=== PATIENT | female | born 1985 | race Caucasian/White ===

== ENCOUNTER 2017-06-10 04:59 | Inpatient (IN) | payer OTHER ==
[~2017-06-10] VITALS: Ht 160 cm; Wt 66.2 kg
[2017-06-10] MEDS ORDERED: RINGERS SOLUTION,LACTATED 1,000 ML IV PRN (06:51)
[2017-06-10] MEDS ORDERED: CITRIC ACID/SODIUM CITRATE 30 ML SOLUTION UDCUP PO PRN (07:00)
[2017-06-10] MEDS ORDERED: LIDOCAINE HCL/PF 1% 30 ML VIAL INJ PRN (07:00)
[2017-06-10] MEDS ORDERED: FentaNYL CITRATE-PF 100 MCG/2 ML VIAL IVP PRN (07:00)
[2017-06-10] MEDS ORDERED: METOCLOPRAMIDE HCL 5 MG/ML 2 ML VIAL IVP PRN (07:00)
[2017-06-10 07:13] VITALS: BP 131/97
[2017-06-10] MEDS ORDERED: RINGERS SOLUTION,LACTATED 1,000 ML IV ONE (07:15)
[2017-06-10 07:22] LABS: BASOPHILS % (AUTO) 0.4 % (0.0-2.0); EOSINOPHILS % (AUTO) 0.6 % (1.0-6.0); HEMATOCRIT 43.4 % (36-46); HEMOGLOBIN 14.7 g/dL (12.0-16.0); LYMPHOCYTES # (AUTO) 1.7 K/uL (1.0-4.8); LYMPHOCYTES % (AUTO) 21.1 % (22.0-44.0); MEAN CORPUSCULAR HEMOGLOBIN 31.6 pg (26.0-34.0); MEAN CORPUSCULAR HGB CONC 33.9 G/dL (31.0-37.0); MEAN CORPUSCULAR VOLUME 93 fL (80-100); MONOCYTES # (AUTO) 0.4 K/uL (0.1-1.0); MONOCYTES % (AUTO) 4.5 % (2.0-9.0); NEUTROPHILS # (AUTO) 5.8 K/uL (1.8-7.7); NEUTROPHILS % (AUTO) 73.4 % (40.0-70.0); PLATELET COUNT (AUTO)-OB 132 K/uL (150-450); RED BLOOD CELL COUNT(AUTO) 4.65 MIL/uL (4.00-5.20)
[2017-06-10] MEDS: RINGERS SOLUTION,LACTATED 1,000 ML IV SCH ×2 (07:36→12:56)
[2017-06-10] MEDS ORDERED: ROPIVACAINE HCL/PF 1% 10 MG/ML 20 ML VIAL ED ONE (08:32)
[2017-06-10] MEDS ORDERED: ROPIVACAINE HCL/PF 0.2% 100 ML ED ONE (08:33)
[2017-06-10] MEDS ORDERED: OXYTOCIN 30 UNITS/LACT RINGERS 500 ML IV ONE (13:45)
[2017-06-10] MEDS ORDERED: CeFAZolin 2 GM/DEXTROSE 50 ML IV ONE (15:45)
[2017-06-10] MEDS ORDERED: LANOLIN 7 GM OINTMENT TP PRN (16:15)
[2017-06-10] MEDS ORDERED: GLYCERIN/WITCH HAZEL LEAF 40 PADS JAR TP PRN (16:15)
[2017-06-10] MEDS ORDERED: BENZOCAINE 20%/MENTHOL 56 GM SPRAY CANISTER TP PRN (16:15)
[2017-06-10] MEDS ORDERED: SENNA/DOCUSATE SODIUM 187-50 MG TABLET PO ONE (16:15)
[2017-06-10] MEDS ORDERED: ACETAMINOPHEN/CODEINE 300-30 MG TABLET PO PRN ×2 (16:15)
[2017-06-10] MEDS: IBUPROFEN 800 MG TABLET PO SCH (18:23)
[2017-06-10] MEDS: MAGNESIUM HYDROXIDE SUSPENSION 30 ML UDCUP PO SCH (22:15)
[2017-06-11] MEDS: IBUPROFEN 800 MG TABLET PO SCH ×3 (01:04→12:27)
[2017-06-11] MEDS: MAGNESIUM HYDROXIDE SUSPENSION 30 ML UDCUP PO SCH (10:43)
[2017-06-11] MEDS ORDERED: SENNA/DOCUSATE SODIUM 187-50 MG TABLET PO ONE (11:30)
[2017-06-11] MEDS ORDERED: IBUP-2071 PO (11:58)
== END 2017-06-11 14:30 | disposition home or self-care (01) | DRG 775 ==
LOC: OBSVTOIN 04:59 → 4S 04:59
PROVIDERS: ADMIT Obstetrics & Gynecology; ATTEND Obstetrics & Gynecology
PROC: 10E0XZZ Delivery of Products of Conception, External Approach (ICD-10-PCS; principal; 2017-06-10)
PROC: 10907ZC Drainage of Amniotic Fluid, Therapeutic from Products of Conception, Via Natural or Artificial Opening (ICD-10-PCS; 2017-06-10)
PROC: 0W8NXZZ Division of Female Perineum, External Approach (ICD-10-PCS; 2017-06-10)
PROC: 4A1HXCZ Monitoring of Products of Conception, Cardiac Rate, External Approach (ICD-10-PCS; 2017-06-10)
PROC: 3E0R3BZ Introduction of Anesthetic Agent into Spinal Canal, Percutaneous Approach (ICD-10-PCS; 2017-06-10)
PROC: 00HU33Z Insertion of Infusion Device into Spinal Canal, Percutaneous Approach (ICD-10-PCS; 2017-06-10)
DX: O63.1 Prolonged second stage (of labor) (principal); Z37.0 Single live birth; Z3A.39 39 weeks gestation of pregnancy; Z79.899 Other long term (current) drug therapy
CPT/HCPCS: 86850; 86900; 86901; J0690; J2590; J2795; J7120

== ENCOUNTER 2019-12-02 13:05 | Observation (INO) | payer OTHER ==
[~2019-12-02] VITALS: Ht 152.4 cm; Wt 67.6 kg
[~2019-12-02 13:05] MED LIST: IBUP-2071 PO
[2019-12-02] MEDS ORDERED: PREN-217 PO (13:11)
[2019-12-02 14:14] VITALS: BP 116/78
[2019-12-02 15:39] LABS: COVID AG,FIA SOURCE NASOPHARYNGEAL
== END 2019-12-02 15:35 | disposition home or self-care (01) ==
LOC: 4S 13:05
PROVIDERS: ADMIT Obstetrics & Gynecology; ATTEND Obstetrics & Gynecology
DX: Z34.83 Encounter for supervision of other normal pregnancy, third trimester (principal); Z20.828 Contact with and (suspected) exposure to other viral communicable diseases; Z3A.38 38 weeks gestation of pregnancy
CPT/HCPCS: 59025; 87426; 99219

== ENCOUNTER 2019-12-02 13:10 | Inpatient (IN) | payer OTHER ==
[~2019-12-02] VITALS: Ht 160 cm; Wt 68.0 kg
[2019-12-02] MEDS ORDERED: PREN-217 PO (13:11)
[2019-12-05] MEDS ORDERED: RINGERS SOLUTION,LACTATED 1,000 ML IV ONE (09:24)
[2019-12-05] MEDS ORDERED: RINGERS SOLUTION,LACTATED 1,000 ML IV PRN (09:26)
[2019-12-05] MEDS ORDERED: OXYTOCIN 30 UNITS/LACT RINGERS 500 ML IV ONE (09:26)
[2019-12-05] MEDS ORDERED: OXYTOCIN 30 UNITS/LACT RINGERS 500 ML IV PRN (09:26)
[2019-12-05] MEDS ORDERED: METOCLOPRAMIDE HCL 5 MG/ML 2 ML VIAL IVP PRN (09:30)
[2019-12-05] MEDS ORDERED: CITRIC ACID/SODIUM CITRATE 30 ML SOLUTION UDCUP PO PRN (09:30)
[2019-12-05] MEDS ORDERED: FentaNYL CITRATE-PF 100 MCG/2 ML VIAL IVP PRN (09:30)
[2019-12-05] MEDS ORDERED: LIDOCAINE/PF 1% 30 ML VIAL INJ PRN (09:30)
[2019-12-05] MEDS ORDERED: METHYLERGONOVINE MALEATE 0.2 MG/ML VIAL IM PRN (09:30)
[2019-12-05 09:39] VITALS: BP 136/81
[2019-12-05] MEDS: RINGERS SOLUTION,LACTATED 1,000 ML IV SCH ×2 (09:45→11:54)
[2019-12-05 09:56] LABS: BASOPHILS % (AUTO) 0.4 % (0.0-2.0); EOSINOPHILS % (AUTO) 1.5 % (1.0-6.0); HEMATOCRIT 39.3 % (36-46); HEMOGLOBIN 13.4 g/dL (12.0-16.0); LYMPHOCYTES # (AUTO) 2.4 K/uL (1.0-4.8); LYMPHOCYTES % (AUTO) 37.8 % (22.0-44.0); MEAN CORPUSCULAR HEMOGLOBIN 32.2 pg (26.0-34.0); MEAN CORPUSCULAR HGB CONC 34.1 G/dL (31.0-37.0); MEAN CORPUSCULAR VOLUME 94 fL (80-100); MONOCYTES # (AUTO) 0.4 K/uL (0.1-1.0); MONOCYTES % (AUTO) 5.7 % (2.0-9.0); NEUTROPHILS # (AUTO) 3.5 K/uL (1.8-7.7); NEUTROPHILS % (AUTO) 54.6 % (40.0-70.0); PLATELET COUNT (AUTO)-OB 116 K/uL (150-450); RED BLOOD CELL COUNT(AUTO) 4.16 MIL/uL (4.00-5.20); RED CELL DISTRIBUTION WIDTH 13.3 % (11.5-14.5)
[2019-12-05] MEDS ORDERED: ROPIVACAINE HCL/PF 0.2% 0 ML ED ONE (11:29)
[2019-12-05] MEDS ORDERED: ROPIVACAINE HCL/PF 0.2% 100 ML ED ONE (11:32)
[2019-12-05] MEDS ORDERED: ROPIVACAINE HCL/PF 0.2% 100 ML ED PRN (11:44)
[2019-12-05] MEDS ORDERED: ONDANSETRON HCL 4 MG/2 ML VIAL IVP PRN (11:45)
[2019-12-05] MEDS ORDERED: DiphenhydrAMINE HCL 50 MG/ML VIAL IVP PRN (11:45)
[2019-12-05] MEDS ORDERED: NALBUPHINE HCL 10 MG/ML VIAL IVP PRN (11:45)
[2019-12-05] MEDS ORDERED: CeFAZolin 2 GM/DEXTROSE 50 ML IV ONE ×2 (14:21→14:30)
[2019-12-05] MEDS ORDERED: GLYCERIN/WITCH HAZEL LEAF 40 PADS JAR TP PRN (15:00)
[2019-12-05] MEDS ORDERED: LANOLIN 7 GM OINTMENT TP PRN (15:00)
[2019-12-05] MEDS ORDERED: BENZOCAINE 20%/MENTHOL 56 GM SPRAY CANISTER TP PRN (15:00)
[2019-12-05] MEDS ORDERED: ACETAMINOPHEN/CODEINE 300-30 MG TABLET PO PRN ×2 (15:00)
[2019-12-05] MEDS: IBUPROFEN 800 MG TABLET PO SCH ×2 (16:00→19:37)
[2019-12-05] MEDS ORDERED: OXYGEN THERAPY IH SCH (20:00)
[2019-12-05] MEDS: MAGNESIUM HYDROXIDE SUSPENSION 30 ML UDCUP PO SCH (21:14)
[2019-12-06] MEDS: IBUPROFEN 800 MG TABLET PO SCH ×2 (02:16→09:20)
[2019-12-06] MEDS: MAGNESIUM HYDROXIDE SUSPENSION 30 ML UDCUP PO SCH (09:20)
[2019-12-06] MEDS ORDERED: IBUP-2070 PO (11:34)
[2019-12-06] MEDS ORDERED: SENNA/DOCUSATE SODIUM 8.6-50 MG TABLET PO ONE (13:15)
== END 2019-12-06 14:50 | disposition home or self-care (01) | DRG 807 ==
LOC: 4S 13:10 → OBSVTOIN 12-05 08:55
PROVIDERS: ADMIT Obstetrics & Gynecology; ATTEND Obstetrics & Gynecology
PROC: 10E0XZZ Delivery of Products of Conception, External Approach (ICD-10-PCS; principal; 2019-12-05)
PROC: 10907ZC Drainage of Amniotic Fluid, Therapeutic from Products of Conception, Via Natural or Artificial Opening (ICD-10-PCS; 2019-12-05)
PROC: 0W8NXZZ Division of Female Perineum, External Approach (ICD-10-PCS; 2019-12-05)
PROC: 3E0R3BZ Introduction of Anesthetic Agent into Spinal Canal, Percutaneous Approach (ICD-10-PCS; 2019-12-05)
PROC: 00HU33Z Insertion of Infusion Device into Spinal Canal, Percutaneous Approach (ICD-10-PCS; 2019-12-05)
DX: O69.81X0 Labor and delivery complicated by cord around neck, without compression, not applicable or unspecified (principal); Z37.0 Single live birth; Z3A.39 39 weeks gestation of pregnancy
CPT/HCPCS: 86850; 86900; 86901; 99219; J0690; J2590; J2795; J7120